=== PATIENT | male | born 1960 | race Two or more races ===

== ENCOUNTER 2025-07-22 13:04 | Emergency (ER) | payer OTHER ==
[~2025-07-22] VITALS: Ht 188 cm; Wt 92.5 kg
[2025-07-22] MEDS ORDERED: TDAP [DIPH/PERTUSSIS/TET] 0.5 ML VIAL IM ONE (13:32)
[2025-07-22] MEDS: TDAP [DIPH/PERTUSSIS/TET] 0.5 ML VIAL IM ONE (13:43)
[2025-07-22] MEDS ORDERED: LIDOCAINE 1%-EPI 1:100,000 20 ML VIAL ONE (14:26)
[2025-07-22] MEDS: LIDOCAINE 1%-EPI 1:100,000 20 ML VIAL TP ONE (14:30)
[2025-07-22] MEDS ORDERED: IBUP-1490 PO (15:02)
[2025-07-22] MEDS: BACI/NEOM/POLY B OINT PKT 1 UDPKT PACKET TP ONE (15:16)
[2025-07-22 15:19] VITALS: BP 118/70; TEMP 97.9; O2SAT 97
== END 2025-07-22 15:20 | disposition home or self-care (01) ==
LOC: ER 13:20
DX: S81.811A Laceration without foreign body, right lower leg, initial encounter (principal); I11.9 Hypertensive heart disease without heart failure; E78.5 Hyperlipidemia, unspecified; W45.8XXA Other foreign body or object entering through skin, initial encounter; Y93.89 Activity, other specified; Y92.89 Other specified places as the place of occurrence of the external cause; Y99.8 Other external cause status
CPT/HCPCS: 12002; 90471; 90715; 99283; J3490